=== PATIENT | female | born 1990 | race Caucasian/White ===

== ENCOUNTER 2021-07-24 14:19 | Emergency (ER) | payer OTHER, SELFPAY ==
[2021-07-24 15:35] VITALS: BP 110/79; PULSE 65; RESP 20; TEMP 36.5; O2SAT 100
--- NOTE | 2021-07-24 15:43 | ED.SKABFB ---
HPI - Skin/Abscess/Foreign Bdy General Chief complaint: Skin/Abscess/Foreign Body Stated complaint: bug bite Source: patient and RN notes reviewed Mode of arrival: ambulatory Limitations: no limitations History of Present Illness MD complaint: abscess/boil Onset (ago): day(s) (2) Location: buttocks (left) Severity: moderate Quality: aching and constant Pain Consistency: constant Relieving factors: none Exacerbating factors: none Context: none Associated symptoms: denies other symptoms Treatments prior to arrival: none Related Data Home Medications Medication Instructions Recorded Confirmed No Home Medications 07/24/21 07/24/21 Allergies Allergy/AdvReac Type Severity Reaction Status Date / Time No Known Allergies Allergy Verified 07/24/21 16:42 Review of Systems Review of Systems: All systems reviewed & are unremarkable except as noted in HPI and below Constitutional: Constitutional: Denies chills and Denies fever(s) Gastrointestinal: Gastrointestinal: Reports nausea and Denies vomiting PMFSH Past Medical History Medical History (Updated 07/24/21 @ 16:08 by Dimitris Hearn MD) No active medical problems Surgical History Surgical History (Updated 07/24/21 @ 15:48 by Dimitris Hearn MD) History of cholecystectomy Social History Social History (Updated 07/24/21 @ 15:49 by Dimitris Hearn MD) Smoking packs per day: 1 Smoking cigarettes per day: 20.0 Smoking status: Current every day smoker Tobacco type: cigarettes Alcohol use details: occasional Substance use: current Substance use type: marijuana Exam Const: General: healthy appearing and no acute distress Nutritional Appearance: well nourished Orientation/consciousness: patient oriented x3 Other: 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 HENMT: Head: normal to inspection Ears: external ears normal Eyes: Conjunctivae: conjunctivae normal Pupils: Equal, round and reactive pupils present EOM: EOMs intact bilaterally Neck: Neck: normal visual inspection Resp: Effort & Inspection: normal respiratory effort Auscultation: clear to auscultation bilaterally Cardio: Rate: regular rate Rhythm: regular rhythm GI: Auscultation: normal bowel sounds Back/Spine/Pelvis: Cervical Spine: cervical ROM normal Thoracic/Lumbar Spine: thoraco-lumbar ROM normal Skin: General skin exam: normal color Lesions: lesion noted ( Abscess, fluctuating, pointing) pustule left buttock size (4 cm) and tender Rashes: no rashes Neuro: General: patient oriented x3, moves all extremities, no meningeal signs and no focal motor deficits Speech: normal speech Gait exam (Neuro): Normal gait present Extrem: General: normal to inspection and no clubbing, cyanosis or edema Psych: Appearance: grossly normal and well kempt Mental Status: mental status grossly normal Affect: normal affect Attitude: cooperative Thought content: Yes Normal thought content present Course Vital Signs Vital signs: Vital Signs Temperature 36.5 C 07/24/21 15:35 Pulse Rate 65 07/24/21 15:35 Respiratory Rate 20 07/24/21 15:35 Blood Pressure 110/79 07/24/21 15:35 Pulse Oximetry 100 07/24/21 15:35 Temperature 36.7 C 07/24/21 16:44 Pulse Rate 61 07/24/21 16:44 Respiratory Rate 20 07/24/21 16:44 Blood Pressure 113/83 07/24/21 16:44 Pulse Oximetry 100 07/24/21 16:44 Procedures Abscess I/D left buttock: Date of Incision: 07/24/21 Side (if applicable): left Local Anesthetic: lidocaine 1% and with epi Amount of anesthesia used (mL): 10 Technique: incised with #11 blade Amount of fluid expressed (mL): 6 Irrigation: No Packing used?: none I&D Results: Pus Discharge Plan Discharge Clinical Impression: Abscess Patient Disposition: Home, Self-Care Condition: Improved Instructions: Abscess Incision and Drainage (DC) Additional Instructions: change bandage diego
[2021-07-24 16:44] VITALS: BP 113/83; PULSE 61; RESP 20; TEMP 36.7; O2SAT 100
== END 2021-07-24 16:46 | disposition home or self-care (01) ==
PROVIDERS: Emergency Provider Emergency Medicine
DX: L02.31 Cutaneous abscess of buttock (principal)
CPT/HCPCS: 10060; 99282